=== PATIENT | female | born 1935 | race Caucasian/White ===

== ENCOUNTER 2017-08-25 19:18 | Inpatient (IN) | payer BC, MEDICARE ==
[2017-08-25] MEDS ORDERED: NORMAL SALINE 1000 ML 1,000 ML IV ONE (20:36)
--- NOTE | 2017-08-25 20:40 | ER Document Report ---
ED Medical Screen (RME) - General Chief Complaint: Flu Symptoms Stated Complaint: FLU LIKE SYMPTOMS Time Seen by Provider: 08/25/17 20:27 Notes: 81-year-old female here with multiple complaints ongoing for the past 5-7 days: Body aches, nausea, vomiting, diarrhea, minimal cough, dysuria, fevers/chills. She has tried taking Motrin and Tylenol for the symptoms with minimal to mild relief. She does not know of any sick contacts recently however several weeks ago she was sitting in a room at another hospital filled with "sick people with masks on". She received her influenza vaccine June 2017, she reports. EXAM Mildly tachycardic 110s Clear to auscultation bilaterally Dry mucous membranes with poor skin turgor No abdominal tenderness to palpation TRAVEL OUTSIDE OF THE [place] IN LAST 30 DAYS: No - Related Data Allergies/Adverse Reactions: Penicillins Allergy (Verified 08/25/17 19:20) Past Medical History - Social History Chew tobacco use (# tins/day): No Frequency of alcohol use: None Drug Abuse: None - Past Medical History Cardiac Medical History: Reports: Hx Hypertension Renal/ Medical History: Denies: Hx Peritoneal Dialysis Psychiatric Medical History: Reports: Hx Depression Physical Exam - Vital signs Vitals: Temp Pulse BP Pulse Ox 98.0 F 106 H 111/49 L 94 08/25/17 19:29 08/25/17 19:29 08/25/17 19:29 08/25/17 19:29 Course - Vital Signs Vital signs: Temp Pulse Resp BP Pulse Ox 98.0 F 106 H 111/49 L 94 08/25/17 19:29 08/25/17 19:29 08/25/17 19:29 08/25/17 19:29
[2017-08-25 21:28] LABS: HEMATOCRIT 30.4 % (36.0-47.0); MEAN CORPUSCULAR HEMOGLOBIN 30.2 pg (27.0-33.4); MEAN CORPUSCULAR HGB CONC 33.1 g/dL (32.0-36.0); MEAN CORPUSCULAR VOLUME 91 fl (80-97); PLATELET COUNT 215 10^3/uL (150-450); RED BLOOD COUNT 3.33 10^6/uL (3.72-5.28); RED CELL DISTRIBUTION WIDTH 13.3 % (11.5-14.0); WHITE BLOOD COUNT 14.9 10^3/uL (4.0-10.5)
--- NOTE | 2017-08-25 21:36 | RADIOLOGY REPORT (SQ) ---
EXAM DESCRIPTION: CHEST PA/LAT COMPLETED DATE/TIME: 08/25/2017 9:24 pm REASON FOR STUDY: eval pneumonia COMPARISON: None. EXAM PARAMETERS: NUMBER OF VIEWS: two views TECHNIQUE: Digital Frontal and Lateral radiographic views of the chest acquired. RADIATION DOSE: NA LIMITATIONS: none FINDINGS: LUNGS AND PLEURA: No opacities, masses or pneumothorax. No pleural effusion. MEDIASTINUM AND HILAR STRUCTURES: No masses or contour abnormalities. HEART AND VASCULAR STRUCTURES: Heart normal size. No evidence for failure. BONES: No acute findings. HARDWARE: None in the chest. OTHER: No other significant finding. IMPRESSION: NO SIGNIFICANT RADIOGRAPHIC FINDING IN THE CHEST. TECHNICAL DOCUMENTATION: JOB ID: [id number] [employer]- All Rights Reserved
[2017-08-25 21:41] LABS: AMORPHOUS SEDIMENT,URINE TRACE /HPF; APPEARANCE,URINE CLOUDY; BILIRUBIN,URINE NEGATIVE (NEGATIVE); COLOR,URINE AMBER; GLUCOSE, URINE NEGATIVE (NEGATIVE); KETONES,URINE NEGATIVE (NEGATIVE); LEUKOCYTE ESTERASE,URINE MODERATE (NEGATIVE); NITRITE,URINE POSITIVE (NEGATIVE); PROTEIN,URINE 100 mg/dL (NEGATIVE)
[2017-08-25 21:42] LABS: A TYPE INFLUENZA AG NEGATIVE (NEGATIVE); B INFLUENZA AG NEGATIVE (NEGATIVE)
[2017-08-25 21:44] LABS: ABSOLUTE LYMPHOCYTES# (MANUAL) 0.9 10^3/uL (0.5-4.7); ABSOLUTE MONOCYTES # (MANUAL) 1.2 10^3/uL (0.1-1.4); ABSOLUTE NEUTROPHILS# (MANUAL) 12.8 10^3/uL (1.7-8.2); BAND NEUTROPHILS % (MANUAL) 4 % (3-5); BASOPHILS % (MANUAL) 0 % (0-2); EOSINOPHILS % (MANUAL) 0 % (0-6); LYMPHOCYTES % (MANUAL) 6 % (13-45); MONOCYTES % (MANUAL) 8 % (3-13); SEGMENTED NEUTROPHILS % (MAN) 82 % (42-78); TOTAL CELLS COUNTED 100
[2017-08-25 21:45] LABS: PLATELET COMMENT ADEQUATE; TOXIC GRANULATION SLIGHT
[2017-08-25 22:11] LABS: CALCIUM 9.2 mg/dL (8.4-10.2)
[2017-08-25 22:12] LABS: ALBUMIN 3.4 g/dL (3.5-5.0); ANION GAP 14 (5-19); BLOOD UREA NITROGEN 85 mg/dL (7-20); CARBON DIOXIDE 27 mmol/L (22-30); CHLORIDE 92 mmol/L (98-107); GLUCOSE 108 mg/dL (75-110); SODIUM 133.4 mmol/L (137-145)
[2017-08-25 22:13] LABS: ALANINE AMINOTRANSFERASE 53 U/L (9-52); ALKALINE PHOSPHATASE 203 U/L (38-126); ASPARTATE AMINO TRANSFERASE 116 U/L (14-36); BILIRUBIN,DIRECT 0.5 mg/dL (0.0-0.4); BILIRUBIN,TOTAL 0.7 mg/dL (0.2-1.3); TOTAL PROTEIN 6.5 g/dL (6.3-8.2)
[2017-08-25 22:14] LABS: LIPASE 23.9 U/L (23-300)
[2017-08-25 22:17] LABS: POTASSIUM 2.8 mmol/L (3.6-5.0)
[2017-08-25] MEDS ORDERED: CEFTRIAXONE INJ 1000 MG VIAL IV ONE (23:26)
[2017-08-25] MEDS ORDERED: POTASSIUM CHLORIDE 10 MEQ TABLET.SA PO ONE (23:27)
[2017-08-26] MEDS ORDERED: PANTOPRAZOLE SODIUM 40 MG VIAL IV ONE (02:13)
[2017-08-26] MEDS ORDERED: NORMAL SALINE 500 ML IV ONE (02:13)
[2017-08-26] MEDS ORDERED: MORPHINE SULFATE 10 MG/ML INJ IV ONE (03:21)
[2017-08-26] MEDS ORDERED: ONDANSETRON HCL INJ/PF 4 MG/2 ML SDV IV ONE (03:49)
--- NOTE | 2017-08-26 03:58 | RADIOLOGY REPORT (SQ) ---
EXAM DESCRIPTION: CT ABDOMEN AND PELVIS WITHOUT CONTRAST CLINICAL HISTORY: abdominal pain, pyelonephritis COMPARISON: None Available. TECHNIQUE: CT of the abdomen and pelvis without IV contrast. FINDINGS: Abdomen: The liver has normal size and decreased density. No calcified gallstones. The spleen, pancreas, and adrenal glands are unremarkable. There is a 0.6 cm nonobstructing right renal calculus. There are 2 nonobstructing left renal calculi, the largest measuring 0.5 cm. Hypodense structure in the inferior pole of the right kidney measuring 4.6 cm likely represents a cyst however definitive characterization is not possible without IV contrast. Aortoiliac atherosclerosis. IVC is unremarkable. No free intraperitoneal air. The stomach and duodenum have normal course. Pelvis: Prior hysterectomy. Urinary bladder is unremarkable. No free pelvic fluid or lymphadenopathy. Scattered diverticula of the colon without pericolic fat stranding. No dilated loops of large or small bowel. The appendix is not definitely identified however no right lower quadrant inflammatory change. The visualized lung bases imaging minimal scarring or discoid atelectasis. No destructive bone lesions identified. Degenerative spondylosis of the visualized thoracic and lumbar spine. Blastic changes of the hips bilaterally. DLP: 415.90 mGy-cm IMPRESSION: 1. No acute inflammatory or obstructive abnormality identified. 2. Bilateral nonobstructing renal calculi. 3. Diverticulosis without evidence of acute diverticulitis. 4. Hepatic steatosis. This exam was performed according to our departmental dose-optimization program, which includes automated exposure control, adjustment of the mA and/or kV according to patient size and/or use of iterative reconstruction technique.
[2017-08-26] MEDS ORDERED: NORMAL SALINE 1000 ML 1,000 ML IV PRN (04:43)
[2017-08-26] MEDS ORDERED: ONDANSETRON HCL INJ/PF 4 MG/2 ML SDV IV PRN (04:43)
--- NOTE | 2017-08-26 04:44 | ER Document Report ---
ED General - General Chief Complaint: Flu Symptoms Stated Complaint: FLU LIKE SYMPTOMS Time Seen by Provider: 08/25/17 20:27 Notes: Patient is an 81-year-old female presents with complaint of feeling unwell. She says over the weekend she did not feel very well and then on Monday she started to feel really sick. She says she has had body aches and subjective fevers at home. She has felt very nauseous and has not eaten much. She has also had dysuria and urinary frequency. She also mentioned she has had some dark colored stools over last 24 hours. She has had some central abdominal pain. She says this is been mild and feels more like body aches to her. No other complaints at this time. No cough or congestion. TRAVEL OUTSIDE OF THE [place] IN LAST 30 DAYS: No - Related Data Allergies/Adverse Reactions: Penicillins Allergy (Verified 08/25/17 19:20) Past Medical History - Social History Smoking Status: Never Smoker Chew tobacco use (# tins/day): No Frequency of alcohol use: None Drug Abuse: None Family History: Reviewed & Not Pertinent Patient has suicidal ideation: No Patient has homicidal ideation: No - Past Medical History Cardiac Medical History: Reports: Hx Hypertension Renal/ Medical History: Denies: Hx Peritoneal Dialysis Psychiatric Medical History: Reports: Hx Depression Review of Systems - Review of Systems Notes: My Normal Review Basic REVIEW OF SYSTEMS: CONSTITUTIONAL : Chills. Feeling unwell. Feeling weak. EENT: Denies eye, ear, throat, or mouth pain or symptoms. Denies nasal or sinus congestion. CARDIOVASCULAR: Denies chest pain. RESPIRATORY: Denies cough, cold, or chest congestion. Denies shortness of breath, difficulty breathing, or wheezing. GASTROINTESTINAL: Some abdominal pain. Denies nausea, vomiting, or diarrhea. Dark stools. Urinary: Dysuria and urinary frequency. MUSCULOSKELETAL: Denies neck or back pain or joint pain or swelling. SKIN: Denies rash or skin lesions. NEUROLOGICAL: Denies altered mental status or loss of consciousness. Denies headache. Denies weakness or paralysis or loss of use of either side. Denies problems with gait or speech. Denies sensory or motor loss. ALL OTHER SYSTEMS REVIEWED AND NEGATIVE. Physical Exam - Vital signs Vitals: Temp Pulse BP Pulse Ox 98.0 F 106 H 111/49 L 94 08/25/17 19:29 08/25/17 19:29 08/25/17 19:29 08/25/17 19:29 - Notes Notes: General Appearance: Well nourished, alert, cooperative, no acute distress, no obvious discomfort. Weak appearing. Vitals: reviewed, See vital signs table. Head: no swelling or tenderness to the head Eyes: PERRL, EOMI, Conjuctiva clear Mouth: No decreasd moisture Neck: Supple, no neck tenderness Lungs: No wheezing, No rales, No rhonci, No accessory muscle use, good air exchange bilaterally. Heart: Normal rate, Regular rythm, No murmur, no rub Abdomen: Normal BS, soft, No rigidity, mild diffuse abdominal tenderness to palpation, No guarding, no rebound, no abdominal masses, no organomegaly Rectal: Brown stool on rectal exam. No gross blood. Extremities: strength 5/5 in all extremities, good pulses in all extremities, no swelling or tenderness in the extremities, no edema. Skin: warm, dry, appropriate color, no rash Neuro: speech clear, oriented x 3, normal affect, responds appropriately to questions. Course - Re-evaluation Re-evalutation: 08/26/17 06:26 Patient's potassium is low and therefore I did give her some supplemental potassium. As patient stay in the ER she continued to be more more weak appearing and her heart rate continued to increase making concerned that the patient is possibly becoming septic from a kidney infection. Patient is also started having some epigastric pain. She is to take Zantac for indigestion. She says she has had some indigestion and acid reflux type symptoms recently but had not restarted her medication. Now she started have some dark stools. Rectal exam she had brown stools but they did end up being guaiac positive. I did give her a dose of Protonix IV. I did call and speak with the hospitalist, Dr. Tejeda. I discussed case with her. She agreed to come evaluate the patient for admission. I did give the patient dose of Rocephin did send her urine for culture. Blood cultures have also been obtained. Dictation of this chart was performed using voice recognition software; therefore, there may be some unintended grammatical errors. - Vital Signs Vital signs: Temp Pulse Resp BP Pulse Ox 98.2 F 106 H 22 H 129/54 H 93 08/26/17 05:00 08/25/17 19:29 08/26/17 05:01 08/26/17 05:01 08/26/17 05:01 - Laboratory Result Diagrams: 08/25/17 21:05 08/25/17 21:05 Laboratory results interpreted by me: 08/25/17 08/25/17 08/25/17 21:05 21:05 21:05 WBC 14.9 H RBC 3.33 L Hgb 10.0 L Hct 30.4 L Seg Neuts % (Manual) 82 H Lymphocytes % (Manual) 6 L Abs Neuts (Manual) 12.8 H Sodium 133.4 L Potassium 2.8 L* Chloride 92 L BUN 85 H Creatinine 2.89 H Est GFR ( Amer) 19 L Est GFR (Non-Af Amer) 16 L Magnesium Direct Bilirubin 0.5 H AST 116 H ALT 53 H Alkaline Phosphatase 203 H Albumin 3.4 L Urine Protein 100 H Urine Nitrite POSITIVE H Urine Urobilinogen 2.0 H Ur Leukocyte Esterase MODERATE H 08/25/17 21:05 WBC RBC Hgb Hct Seg Neuts % (Manual) Lymphocytes % (Manual) Abs Neuts (Manual) Sodium Potassium Chloride BUN Creatinine Est GFR ( Amer) Est GFR (Non-Af Amer) Magnesium 2.5 H Direct Bilirubin AST ALT Alkaline Phosphatase Albumin Urine Protein Urine Nitrite Urine Urobilinogen Ur Leukocyte Esterase Discharge - Discharge Clinical Impression: Pyelonephritis, Hypokalemia, Guaiac positive stools Condition: Stable Disposition: ADMITTED INPATIENT Admitting Provider: Hospitalist Unit Admitted: [facility]
[2017-08-26] MEDS: SUCRALFATE SUSP 1 GM/10 ML UDCUP PO SCH ×3 (05:20→18:43)
[2017-08-26] MEDS: POTASSI CL 20 MEQ/50 ML RIDER 20 MEQ/50 ML RTUPB IV SCH ×2 (05:22→07:46)
[2017-08-26] MEDS ORDERED: POTASSIUM CHLORIDE 10 MEQ TABLET.SA PO ONE (05:30)
--- NOTE | 2017-08-26 07:32 | PDOC H&P ---
History of Present Illness History of Present Illness: LOUISA GUERRA is a 81 year old female with past medical history of hypertension, depression, anxiety resents to the emergency department with complaints of chills and generalized malaise. Patient reports that starting on Monday she began having chills subsequently developed into body aches. She reports she began having abdomen chest head and leg pain. She took some Tylenol and Midol. She states she has been eating and drinking very little over the past week and noted that her urine was dark however noted urgency frequency and dysuria. Patient reports she took Azo. She reports that she does have a slight cough but it is dry. She reports nausea but dry heaves no actual vomiting. And has a couple of days ago she had some dark stool. Patient is found to have UTI likely acute renal failure and sepsis and is referred to the hospital service for admission. Patient's medications are currently undergoing reconciliation. Current list is automatically generated by [employer] and does not reflect an accurate description of her medications. Due to the urgent/emergent nature of her condition, she is admitted without a full list. Past Medical History Cardiac Medical History: Reports: Hypertension Psychiatric Medical History: Reports: Depression Past Surgical History Past Surgical History: Reports: Hysterectomy Social History Smoking Status: Never Smoker - Advance Directive Resuscitation Status: Full Code Surrogate healthcare decision maker:: Mohinder Sanford, brother Family History Family History: CAD Parental Family History Reviewed: Yes Children Family History Reviewed: NA Sibling(s) Family History Reviewed.: Yes Medication/Allergy Allergies/Adverse Reactions: Penicillins Allergy (Verified 08/25/17 19:20) Review of Systems Constitutional: PRESENT: as per HPI, anorexia, chills, fatigue, fever(s), weakness. ABSENT: headache(s), weight gain, weight loss Eyes: ABSENT: visual disturbances Ears: ABSENT: hearing changes Cardiovascular: ABSENT: chest pain, dyspnea on exertion, edema, orthropnea, palpitations Respiratory: ABSENT: cough, hemoptysis Gastrointestinal: PRESENT: as per HPI, melena, nausea, vomiting. ABSENT: abdominal pain, constipation, diarrhea, hematemesis, hematochezia Genitourinary: PRESENT: dysuria. ABSENT: hematuria Musculoskeletal: ABSENT: joint swelling Integumentary: ABSENT: rash, wounds Neurological: ABSENT: abnormal gait, abnormal speech, confusion, dizziness, focal weakness, syncope Psychiatric: ABSENT: anxiety, depression, homidical ideation, suicidal ideation Endocrine: ABSENT: cold intolerance, heat intolerance, polydipsia, polyuria Hematologic/Lymphatic: ABSENT: easy bleeding, easy bruising Physical Exam Vital Signs: Temp Pulse Resp BP Pulse Ox 98.0 F 106 H 18 118/82 93 08/26/17 01:33 08/25/17 19:29 08/26/17 04:07 08/26/17 04:07 08/26/17 04:07 Intake & Output 08/24/17 08/25/17 08/26/17 06:59 06:59 06:59 Weight 53.1 kg General appearance: PRESENT: mild distress, obese, well-developed, well- nourished Head exam: PRESENT: atraumatic, normocephalic Eye exam: PRESENT: conjunctiva pink, EOMI, PERRLA. ABSENT: scleral icterus Ear exam: PRESENT: normal external ear exam Mouth exam: PRESENT: dry mucosa, tongue midline Neck exam: ABSENT: JVD, lymphadenopathy, thyromegaly, tracheal deviation Respiratory exam: PRESENT: clear to auscultation shaunna. ABSENT: rales, rhonchi, wheezes Cardiovascular exam: PRESENT: RRR, +S1, +S2, systolic murmur. ABSENT: diastolic murmur, rubs Pulses: PRESENT: normal dorsalis pedis pul Vascular exam: PRESENT: normal capillary refill GI/Abdominal exam: PRESENT: normal bowel sounds, soft, tenderness - Midepigastric. ABSENT: distended, firm, guarding, mass, Pate's sign, organolmegaly, rebound Rectal exam: PRESENT: deferred Extremities exam: PRESENT: full ROM. ABSENT: calf tenderness, clubbing, pedal edema Neurological exam: PRESENT: alert, awake, oriented to person, oriented to place , oriented to time, oriented to situation, CN II-XII grossly intact. ABSENT: motor sensory deficit Psychiatric exam: PRESENT: appropriate affect, normal mood. ABSENT: homicidal ideation, suicidal ideation Skin exam: PRESENT: dry, intact, warm. ABSENT: cyanosis, rash Results Laboratory Results: 08/25/17 21:05 08/25/17 21:05 08/25/17 08/25/17 08/25/17 21:05 21:05 21:05 WBC 14.9 H RBC 3.33 L Hgb 10.0 L Hct 30.4 L MCV 91 MCH 30.2 MCHC 33.1 RDW 13.3 Plt Count 215 Seg Neutrophils % Not Reportable Lymphocytes % Not Reportable Monocytes % Not Reportable Eosinophils % Not Reportable Basophils % Not Reportable Absolute Neutrophils Not Reportable Absolute Lymphocytes Not Reportable Absolute Monocytes Not Reportable Absolute Eosinophils Not Reportable Absolute Basophils Not Reportable Sodium 133.4 L Potassium 2.8 L* Chloride 92 L Carbon Dioxide 27 Anion Gap 14 BUN 85 H Creatinine 2.89 H Est GFR ( Amer) 19 L Est GFR (Non-Af Amer) 16 L Glucose 108 Calcium 9.2 Magnesium Total Bilirubin 0.7 AST 116 H ALT 53 H Alkaline Phosphatase 203 H Total Protein 6.5 Albumin 3.4 L Lipase 23.9 Urine Color VIJAY Urine Appearance CLOUDY Urine pH 5.0 Ur Specific [place] 1.020 Urine Protein 100 H Urine Glucose (UA) NEGATIVE Urine Ketones NEGATIVE Urine Blood NEGATIVE Urine Nitrite POSITIVE H Ur Leukocyte Esterase MODERATE H Urine WBC (Auto) 94 Urine RBC (Auto) 6 Stool Occult Blood 08/25/17 08/25/17 21:05 23:20 WBC RBC Hgb Hct MCV MCH MCHC RDW Plt Count Seg Neutrophils % Lymphocytes % Monocytes % Eosinophils % Basophils % Absolute Neutrophils Absolute Lymphocytes Absolute Monocytes Absolute Eosinophils Absolute Basophils Sodium Potassium Chloride Carbon Dioxide Anion Gap BUN Creatinine Est GFR ( Amer) Est GFR (Non-Af Amer) Glucose Calcium Magnesium 2.5 H Total Bilirubin AST ALT Alkaline Phosphatase Total Protein Albumin Lipase Urine Color Urine Appearance Urine pH Ur Specific [place] Urine Protein Urine Glucose (UA) Urine Ketones Urine Blood Urine Nitrite Ur Leukocyte Esterase Urine WBC (Auto) Urine RBC (Auto) Stool Occult Blood POSITIVE Impressions: Chest X-Ray 08/25/17 20:36 IMPRESSION: NO SIGNIFICANT RADIOGRAPHIC FINDING IN THE CHEST. Abdomen/Pelvis CT 08/26/17 03:16 IMPRESSION: 1. No acute inflammatory or obstructive abnormality identified. 2. Bilateral nonobstructing renal calculi. 3. Diverticulosis without evidence of acute diverticulitis. 4. Hepatic steatosis. This exam was performed according to our departmental dose-optimization program, which includes automated exposure control, adjustment of the mA and/or kV according to patient size and/or use of iterative reconstruction technique. Assessment & Plan - Diagnosis (1) Sepsis Qualifiers: Sepsis type: sepsis due to unspecified organism Qualified Code(s): A41.9 - Sepsis, unspecified organism Is this a current diagnosis for this admission?: Yes Plan: Have sent blood and urine cultures secondary to pyelonephritis (2) Pyelonephritis Is this a current diagnosis for this admission?: Yes Plan: Place patient empirically on Rocephin. Blood and urine culture sent (3) Anemia Qualifiers: Anemia type: unspecified type Qualified Code(s): D64.9 - Anemia, unspecified Is this a current diagnosis for this admission?: Yes (4) Acute renal failure Qualifiers: Acute renal failure type: unspecified Qualified Code(s): N17.9 - Acute kidney failure, unspecified Is this a current diagnosis for this admission?: Yes Plan: Likely acute and possibly some chronic renal failure. We have no old creatinine to go by. Will hydrate patient gently (5) Anxiety with depression Is this a current diagnosis for this admission?: Yes Plan: Continue Xanax she is unsure of her antidepressant (6) Guaiac positive stools Is this a current diagnosis for this admission?: Yes Plan: Protonix IV twice daily and Carafate (7) Hypokalemia Is this a current diagnosis for this admission?: Yes Plan: Monitor on telemetry with concern for arrhythmia. Replete and recheck
[2017-08-26] MEDS: PANTOPRAZOLE SODIUM 40 MG VIAL IV SCH ×2 (09:37→21:25)
--- NOTE | 2017-08-26 09:54 | PROGRESS NOTE E ---
Progress Note NAME: LOUISA GUERRA : 1935 AGE: 81Y DATE: 08/26/2017 ROOM: ED12 SUBJECTIVE: The patient is currently lying on a stretcher. She states that she feels better than when she came in; however, she is hungry as she did not appreciate her breakfast. The patient has been afebrile. Remains tachycardiac but overall feels much improved. The patient denies any shortness of breath, dizziness, or chest pain. She still has some lateral abdominal wall pain. The patient denies any hematemesis, melena, or hematochezia. The patient does not voice any other concerns at this time. REVIEW OF SYSTEMS: Rest of the review of systems negative. MEDICATIONS: Have been reviewed. OBJECTIVE: GENERAL: The patient is an 81-year-old female who is awake, alert. She is oriented to person, place, time, and situation. She is verbal, conversational, and does not appear to be in any acute distress. VITAL SIGNS: Temperature 98.2, pulse 108, respirations 19, blood pressure 134/65, oxygen saturation is 100% on room air. SKIN: Warm and dry. No rash. She is not diaphoretic. HEENT: Pupils equal, round, reactive to light and accommodation. Conjunctivae are pink. There is no evidence of JVP. CARDIOVASCULAR: Heart is regular. There is no murmur or rub. CHEST: Clear, symmetrical, unlabored. ABDOMEN: Soft, nontender, nondistended. BACK: No CVA tenderness or sacral edema. EXTREMITIES: No clubbing, cyanosis, or edema. PSYCHIATRIC: Appropriate affect. Pleasant mood. DIAGNOSTICS: Lab values are as follow: Hematology obtained on 08/25/2017: WBCs are 14.9, hemoglobin is 10.0, hematocrit is 30.4, platelet count is 215,000. Chemistry obtained on 08/25/2017: Sodium is 133, potassium 2.8, chloride is 92, carbon dioxide 27, BUN 85, creatinine is 2.89, glucose 108, calcium is 9.2. IMPRESSION AND PLAN: 1. ACUTE PYELONEPHRITIS. Will await culture and sensitivity. Continue Rocephin and follow. 2. SEPSIS SECONDARY TO #1. Currently awaiting cultures. Will continue to also hydrate. 3. ACUTE RENAL FAILURE. Feel the patient most likely has an underlying chronic failure as well. Have no old creatinine as a point of reference. Will hydrate the patient gently and follow. 4. ANXIETY WITH DEPRESSION. Will continue the patient's home medication. 5. POSITIVE GUAIAC. Continue PPI. The patient denies any evidence of overt bleed. 6. HYPOKALEMIA. Will add on a magnesium, continue repletion, and repeat chemistries to follow. DISPOSITION: The patient is a FULL CODE. Pending patient's symptomatology and diagnostic findings, will reevaluate as needed. Time spent on this followup including assessment, plan, physical examination, patient education, and review of records is 60 minutes. DICTATING PHYSICIAN: CRISELDA WHITFIELD NP [id number] PHY#: [id number] ID: [id number] JOB#: [id number] ACCT: [id number] cc: >
[2017-08-26 10:55] LABS: HEMATOCRIT 23.3 % (36.0-47.0); MEAN CORPUSCULAR HEMOGLOBIN 31.3 pg (27.0-33.4); MEAN CORPUSCULAR HGB CONC 33.7 g/dL (32.0-36.0); MEAN CORPUSCULAR VOLUME 93 fl (80-97); PLATELET COUNT 173 10^3/uL (150-450); RED BLOOD COUNT 2.51 10^6/uL (3.72-5.28); RED CELL DISTRIBUTION WIDTH 13.6 % (11.5-14.0); WHITE BLOOD COUNT 14.2 10^3/uL (4.0-10.5)
[2017-08-26 11:13] LABS: ABSOLUTE LYMPHOCYTES# (MANUAL) 0.9 10^3/uL (0.5-4.7); ABSOLUTE MONOCYTES # (MANUAL) 0.3 10^3/uL (0.1-1.4); ABSOLUTE NEUTROPHILS# (MANUAL) 12.9 10^3/uL (1.7-8.2); ANION GAP 12 (5-19); BAND NEUTROPHILS % (MANUAL) 8 % (3-5); BASOPHILS % (MANUAL) 1 % (0-2); BLOOD UREA NITROGEN 88 mg/dL (7-20); CHLORIDE 108 mmol/L (98-107); EOSINOPHILS % (MANUAL) 0 % (0-6); GLUCOSE 126 mg/dL (75-110); LYMPHOCYTES % (MANUAL) 6 % (13-45); MAGNESIUM 2.3 mg/dL (1.6-2.3); MONOCYTES % (MANUAL) 2 % (3-13); SEGMENTED NEUTROPHILS % (MAN) 83 % (42-78); SODIUM 136.5 mmol/L (137-145); TOTAL CELLS COUNTED 100
[2017-08-26 11:17] LABS: HYPOCHROMASIA SLIGHT; PLATELET COMMENT ADEQUATE
[2017-08-26 11:21] LABS: HEMOGLOBIN 7.8 g/dL (12.0-15.5)
[2017-08-26 11:32] LABS: CARBON DIOXIDE 17 mmol/L (22-30); POTASSIUM 4.3 mmol/L (3.6-5.0)
[2017-08-26 15:24] LABS: HEMATOCRIT 22.4 % (36.0-47.0); MEAN CORPUSCULAR HEMOGLOBIN 31.3 pg (27.0-33.4); MEAN CORPUSCULAR VOLUME 92 fl (80-97); PLATELET COUNT 188 10^3/uL (150-450); RED BLOOD COUNT 2.43 10^6/uL (3.72-5.28); RED CELL DISTRIBUTION WIDTH 13.4 % (11.5-14.0); WHITE BLOOD COUNT 15.1 10^3/uL (4.0-10.5)
[2017-08-26 15:44] LABS: ABSOLUTE LYMPHOCYTES# (MANUAL) 0.6 10^3/uL (0.5-4.7); ABSOLUTE MONOCYTES # (MANUAL) 0.6 10^3/uL (0.1-1.4); ABSOLUTE NEUTROPHILS# (MANUAL) 13.7 10^3/uL (1.7-8.2); BAND NEUTROPHILS % (MANUAL) 6 % (3-5); BASOPHILS % (MANUAL) 0 % (0-2); EOSINOPHILS % (MANUAL) 1 % (0-6); LYMPHOCYTES % (MANUAL) 4 % (13-45); METAMYELOCYTES % (MANUAL) 1 % (0); MONOCYTES % (MANUAL) 4 % (3-13); SEGMENTED NEUTROPHILS % (MAN) 84 % (42-78); TOTAL CELLS COUNTED 100
[2017-08-26 15:46] LABS: HYPOCHROMASIA SLIGHT; PLATELET COMMENT ADEQUATE
[2017-08-26 16:07] LABS: HEMOGLOBIN 7.6 g/dL (12.0-15.5)
[2017-08-26] MEDS ORDERED: NORMAL SALINE 250 ML IV PRN ×2 (16:48)
[2017-08-26] MEDS ORDERED: ACETAMINOPHEN 325 MG TABLET PO PRN (16:48)
[2017-08-26] MEDS ORDERED: DIPHENHYDRAMINE HCL 25 MG CAPSULE PO PRN (16:48)
[2017-08-26] MEDS: CEFTRIAXONE SODIUM 1,000 MG in DEXTROSE 5%-WATER 50 ML IV SCH (21:31)
[2017-08-26] MEDS ORDERED: CEFTRIAXONE 1 GM/D5W RTU 1 GM/50 ML RTUPB IV SCH (22:00)
[2017-08-27] MEDS: SUCRALFATE SUSP 1 GM/10 ML UDCUP PO SCH ×3 (00:36→12:47)
[2017-08-27] MEDS: PANTOPRAZOLE SODIUM 40 MG VIAL IV SCH ×2 (09:41→21:56)
[2017-08-27] MEDS: PAROXETINE HCL 20 MG TABLET PO SCH (09:42)
[2017-08-27] MEDS: ALPRAZOLAM 0.25 MG TABLET PO PRN ×2 (10:10→21:57)
[2017-08-27 10:22] LABS: HEMATOCRIT 28.7 % (36.0-47.0); HEMOGLOBIN 9.6 g/dL (12.0-15.5); MEAN CORPUSCULAR HEMOGLOBIN 30.7 pg (27.0-33.4); MEAN CORPUSCULAR HGB CONC 33.5 g/dL (32.0-36.0); MEAN CORPUSCULAR VOLUME 92 fl (80-97); PLATELET COUNT 159 10^3/uL (150-450); RED BLOOD COUNT 3.14 10^6/uL (3.72-5.28); RED CELL DISTRIBUTION WIDTH 13.7 % (11.5-14.0); WHITE BLOOD COUNT 16.7 10^3/uL (4.0-10.5)
[2017-08-27 10:37] LABS: ANION GAP 11 (5-19); CALCIUM 8.2 mg/dL (8.4-10.2); CARBON DIOXIDE 16 mmol/L (22-30); CHLORIDE 111 mmol/L (98-107); GLUCOSE 116 mg/dL (75-110); MAGNESIUM 2.2 mg/dL (1.6-2.3); POTASSIUM 4.3 mmol/L (3.6-5.0); SODIUM 138.3 mmol/L (137-145)
[2017-08-27 10:43] LABS: ABSOLUTE LYMPHOCYTES# (MANUAL) 1.2 10^3/uL (0.5-4.7); ABSOLUTE MONOCYTES # (MANUAL) 1.2 10^3/uL (0.1-1.4); ABSOLUTE NEUTROPHILS# (MANUAL) 14.4 10^3/uL (1.7-8.2); BAND NEUTROPHILS % (MANUAL) 2 % (3-5); BASOPHILS % (MANUAL) 0 % (0-2); EOSINOPHILS % (MANUAL) 0 % (0-6); LYMPHOCYTES % (MANUAL) 3 % (13-45); METAMYELOCYTES % (MANUAL) 1 % (0); MONOCYTES % (MANUAL) 7 % (3-13); SEGMENTED NEUTROPHILS % (MAN) 83 % (42-78); TOTAL CELLS COUNTED 100
[2017-08-27 10:44] LABS: HYPOCHROMASIA SLIGHT; PLATELET COMMENT ADEQUATE
[2017-08-27 10:55] LABS: BLOOD UREA NITROGEN 69 mg/dL (7-20)
[2017-08-27] MEDS ORDERED: PHENAZOPYRIDINE HCL 100 MG TABLET ONE (18:49)
--- NOTE | 2017-08-27 18:54 | PROGRESS NOTE E ---
Progress Note NAME: LOUISA GUERRA : 1935 AGE: 81Y DATE: 08/27/2017 ROOM: 306 SUBJECTIVE: The patient is currently lying in bed. She is a little sleepy today. The patient states that she is "hung over from the Benadryl." The patient denies any nausea, vomiting, diarrhea. No shortness of breath, dizziness or chest pain. The family is present at bedside, active in the patient's care, and the patient has not voiced any other concerns at this time. BRIEF HISTORY: The patient is an 81-year-old female with a past medical history of hypertension that presented to the emergency department on 08/26/2017. The patient was found to be septic with pyelonephritis and subsequent gram-negative kaylynn bacteremia. The patient has been covered with Rocephin since admission, with overall improvement in her symptoms. The patient was also noted to have what was felt to be acute renal failure. The patient's presenting creatinine was 2.89, and after hydration, it was 1.9. No other labs were available for comparison, and these are pending from Dr. Albright's office on Monday. The patient's potassium has been repleted. Additionally, it appears that the patient came in with a hemoglobin of 10, which again the patient was quite dehydrated, and this did drift down to 7.6. The patient was typed and crossed and transfused 2 units of packed red blood cells. I have a suspicion that the patient most likely has underlying chronic disease, given her normocytic, normochromic anemia; however, the patient did have a positive guaiac, and a repeat guaiac is pending. The patient has been on PPI therapy and has had no evidence of bright red bleeding, melena or hematochezia. REVIEW OF SYSTEMS: The rest of the review of systems is negative. MEDICATIONS: Reviewed. OBJECTIVE: GENERAL: The patient is an 81-year-old female who is awake, alert and oriented to person, place, time and situation. She is verbal and conversational. Does not appear to be in any acute distress. VITAL SIGNS: Temperature is 98.7, pulse 93, respirations 20, blood pressure 150/64, oxygen saturation 100% on 2 liters nasal cannula. SKIN: Warm and dry. No rashes. Not diaphoretic. HEENT: Pupils equal, round and reactive to light and accommodation. Conjunctivae are pink. NECK: There is no evidence of JVP. CVS: Heart is regular rate and rhythm. No murmur or rub. CHEST: Clear, symmetrical, unlabored. ABDOMEN: Soft, nontender, nondistended. BACK: No CVA tenderness or sacral edema. EXTREMITIES: No clubbing, cyanosis or edema. 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 DIAGNOSTICS: Lab values are as follows: Hematology obtained on 08/27/2017: WBC 16.7, hemoglobin 9.6, hematocrit is 28.7, platelet count is 159,000. Chemistry obtained on 08/27/2017: Sodium is 138, potassium 4.3, chloride is 111, carbon dioxide 16. BUN 69, creatinine 1.93, glucose 116, calcium is 8.2, magnesium is 2.2. Blood culture sent on 08/25/2017 had gram-negative rods. IMPRESSION AND PLAN: 1. ACUTE PYELONEPHRITIS. Will continue with Rocephin, given that the patient's clinical condition has improved, and await urine culture and sensitivity, which is still interestingly pending. 2. GRAM-NEGATIVE KAYLYNN BACTEREMIA. This in both sets, most likely secondary to #1. Once again, will continue with Rocephin. We will repeat blood cultures today and follow. 3. SEPSIS, SECONDARY TO #1 AND #2. Currently awaiting repeat cultures. 4. ACUTE RENAL FAILURE. I do have a suspicion of underlying chronic kidney disease, as well. There is no old creatinine for comparison; however, this should be obtained from Dr. Albright's office in the a.m. At this time, will continue to hold Voltaren, Mobic, Diovan and hydrochlorothiazide, and gently hydrate. 5. ANXIETY WITH DEPRESSION. Will continue the patient's Paxil and Xanax. 6. HYPOKALEMIA. The patient's magnesium is normal. The patient's potassium has been repleted. 7. ANEMIA, STATUS POST TRANSFUSION. The patient was transfused 2 units of packed red blood cells on 08/26/2017. The patient did have a positive guaiac, but has denied any melena or hematochezia. The patient did have a small black stool, but this has been after Pepto-Bismol. Patient did have a positive guaiac. Will continue PPI, but there is no evidence of overt bleed at this time. DISPOSITION: The patient is a FULL CODE. Pending patient's symptomatology and diagnostic findings, will reevaluate in the a.m. Time spent on this followup, including assessment, plan, physical examination, patient education and family meeting and review of records is 35 minutes. DICTATING PHYSICIAN: CRISELDA WHITFIELD NP [id number] PHY#: [id number] ID: [id number] JOB#: [id number] ACCT: [id number] cc: >
[2017-08-27] MEDS: FLUCONAZOLE 100 MG TABLET PO SCH (18:56)
[2017-08-27] MEDS: PHENAZOPYRIDINE HCL 100 MG TABLET PO SCH (18:57)
[2017-08-27] MEDS: NORMAL SALINE 1000 ML 1,000 ML IV PRN (18:57)
[2017-08-27] MEDS: CEFTRIAXONE SODIUM 1,000 MG in DEXTROSE 5%-WATER 50 ML IV SCH (22:00)
[2017-08-28 05:05] LABS: HEMATOCRIT 26.5 % (36.0-47.0); HEMOGLOBIN 9.2 g/dL (12.0-15.5); MEAN CORPUSCULAR HEMOGLOBIN 31.5 pg (27.0-33.4); MEAN CORPUSCULAR HGB CONC 34.6 g/dL (32.0-36.0); MEAN CORPUSCULAR VOLUME 91 fl (80-97); PLATELET COUNT 160 10^3/uL (150-450); RED BLOOD COUNT 2.91 10^6/uL (3.72-5.28); RED CELL DISTRIBUTION WIDTH 13.7 % (11.5-14.0); WHITE BLOOD COUNT 14.8 10^3/uL (4.0-10.5)
[2017-08-28] MEDS ORDERED: PHENAZOPYRIDINE HCL 100 MG TABLET ONE (05:20)
[2017-08-28 05:22] LABS: ANION GAP 12 (5-19); BLOOD UREA NITROGEN 54 mg/dL (7-20); CALCIUM 8.3 mg/dL (8.4-10.2); CARBON DIOXIDE 18 mmol/L (22-30); CHLORIDE 110 mmol/L (98-107); GLUCOSE 96 mg/dL (75-110); MAGNESIUM 2.1 mg/dL (1.6-2.3); SODIUM 139.7 mmol/L (137-145)
[2017-08-28] MEDS: PHENAZOPYRIDINE HCL 100 MG TABLET PO SCH ×2 (05:33→17:20)
[2017-08-28] MEDS: PANTOPRAZOLE SODIUM 40 MG VIAL IV SCH ×2 (10:26→21:55)
[2017-08-28] MEDS: PAROXETINE HCL 20 MG TABLET PO SCH (10:26)
--- NOTE | 2017-08-28 12:34 | PDOC PROGRESS REPORT ---
Subjective Progress Note for:: 08/28/17 Subjective:: patient is an 81 y/o female admitted for sepsis secondary to UTI from E. Coli. She is doing better today but very weak. She has difficulty ambulating from her chair to the door. She required assistance of a walker today. She does live alone. No fever or chills overnight. No more vomiting or diarrhea. Blood culture has grown E. Coli X2. she is on Rocephin IV. Reason For Visit: SEPSIS,PYELONEPHRITIS,ARF Physical Exam Vital Signs: Temp Pulse Resp BP Pulse Ox 99.0 F 87 24 H 150/53 H 90 L 08/28/17 07:16 08/28/17 07:16 08/28/17 07:16 08/28/17 07:16 08/28/17 07:16 Intake & Output 08/27/17 08/28/17 08/29/17 06:59 06:59 06:59 Intake Total 3091 1846 Output Total 50 650 Balance 3041 1196 Weight 56.6 kg 56.6 kg General appearance: PRESENT: no acute distress, cooperative, well-nourished Head exam: PRESENT: normocephalic Eye exam: PRESENT: conjunctiva pink. ABSENT: nystagmus Mouth exam: PRESENT: moist, neck supple Neck exam: PRESENT: full ROM. ABSENT: carotid bruit, JVD, lymphadenopathy, tenderness, thyromegaly Respiratory exam: PRESENT: clear to auscultation shaunna. ABSENT: accessory muscle use Cardiovascular exam: PRESENT: RRR. ABSENT: diastolic murmur, gallop, rubs Pulses: ABSENT: normal carotid pulses Vascular exam: PRESENT: normal capillary refill. ABSENT: pallor GI/Abdominal exam: PRESENT: normal bowel sounds, soft. ABSENT: guarding, tenderness Extremities exam: ABSENT: calf tenderness, +1 edema Skin exam: PRESENT: normal color. ABSENT: rash Results Laboratory Results: 08/28/17 04:23 08/28/17 04:23 08/28/17 08/28/17 04:23 04:23 WBC 14.8 H RBC 2.91 L Hgb 9.2 L Hct 26.5 L MCV 91 MCH 31.5 MCHC 34.6 RDW 13.7 Plt Count 160 Sodium 139.7 Potassium 4.0 Chloride 110 H Carbon Dioxide 18 L Anion Gap 12 BUN 54 H Creatinine 1.65 H Est GFR ( Amer) 36 L Est GFR (Non-Af Amer) 30 L Glucose 96 Calcium 8.3 L Magnesium 2.1 Impressions: Chest X-Ray 08/25/17 20:36 IMPRESSION: NO SIGNIFICANT RADIOGRAPHIC FINDING IN THE CHEST. Abdomen/Pelvis CT 08/26/17 03:16 IMPRESSION: 1. No acute inflammatory or obstructive abnormality identified. 2. Bilateral nonobstructing renal calculi. 3. Diverticulosis without evidence of acute diverticulitis. 4. Hepatic steatosis. This exam was performed according to our departmental dose-optimization program, which includes automated exposure control, adjustment of the mA and/or kV according to patient size and/or use of iterative reconstruction technique. Assessment & Plan - Diagnosis (1) Bacteremia due to Gram-negative bacteria Is this a current diagnosis for this admission?: Yes Plan: continue Rocephin while in hospital. Can be discharged on cipro to complete course of treatment when ready for discharge (2) Acute renal failure Qualifiers: Acute renal failure type: with acute tubular necrosis Qualified Code(s): N17.0 - Acute kidney failure with tubular necrosis Is this a current diagnosis for this admission?: Yes Plan: continue hydration, repeat cmp in the AM (3) Pyelonephritis Is this a current diagnosis for this admission?: Yes Plan: continue IV Rocephin for now, change to oral cipro at discharge (4) Sepsis Qualifiers: Sepsis type: Escherichia coli Qualified Code(s): A41.51 - Sepsis due to Escherichia coli [E. coli] Is this a current diagnosis for this admission?: Yes Plan: continue antibiotics. Will need assessment for skilled rehab secondary to deconditioning. - Time Time Spent with patient: 25-34 minutes Medications reviewed and adjusted accordingly: Yes Anticipated discharge: Acute Rehab
[2017-08-28] MEDS: FLUCONAZOLE 100 MG TABLET PO SCH (17:20)
[2017-08-28] MEDS: ACETAMINOPHEN 325 MG TABLET PO PRN (21:55)
[2017-08-28] MEDS: CEFTRIAXONE SODIUM 1,000 MG in DEXTROSE 5%-WATER 50 ML IV SCH (21:58)
[2017-08-29] MEDS: PHENAZOPYRIDINE HCL 100 MG TABLET PO SCH (05:11)
[2017-08-29 08:32] LABS: HEMATOCRIT 25.3 % (36.0-47.0); HEMOGLOBIN 8.8 g/dL (12.0-15.5); MEAN CORPUSCULAR HEMOGLOBIN 31.8 pg (27.0-33.4); MEAN CORPUSCULAR HGB CONC 34.6 g/dL (32.0-36.0); MEAN CORPUSCULAR VOLUME 92 fl (80-97); PLATELET COUNT 188 10^3/uL (150-450); RED BLOOD COUNT 2.75 10^6/uL (3.72-5.28); RED CELL DISTRIBUTION WIDTH 13.5 % (11.5-14.0); WHITE BLOOD COUNT 14.9 10^3/uL (4.0-10.5)
[2017-08-29 08:53] LABS: ANION GAP 9 (5-19); BLOOD UREA NITROGEN 34 mg/dL (7-20); CARBON DIOXIDE 19 mmol/L (22-30); CHLORIDE 112 mmol/L (98-107); GLUCOSE 105 mg/dL (75-110); POTASSIUM 3.7 mmol/L (3.6-5.0); SODIUM 140.2 mmol/L (137-145)
[2017-08-29] MEDS: NORMAL SALINE 1000 ML 1,000 ML IV PRN (09:15)
[2017-08-29] MEDS: PAROXETINE HCL 20 MG TABLET PO SCH (09:16)
--- NOTE | 2017-08-29 13:16 | PDOC PROGRESS REPORT ---
Subjective Progress Note for:: 08/29/17 Subjective:: The patient is seen on morning rounds. She is found resting in bed comfortably. She is sleeping when I enter the room but wakes easily when I say her name. She states that she is feeling well today is hopeful to be discharged home soon. She does admit to being rather weak and is concerned about her ability to care for herself as she lives at home alone. She states that she would be interested in a senior care facility for short-term rehab upon discharge. She has no other questions or concerns today. Reason For Visit: SEPSIS,PYELONEPHRITIS,ARF Physical Exam Vital Signs: Temp Pulse Resp BP Pulse Ox 98.8 F 86 15 157/60 H 89 L 08/29/17 12:30 08/29/17 12:30 08/29/17 12:30 08/29/17 12:30 08/29/17 12:30 Intake & Output 08/28/17 08/29/17 08/30/17 06:59 06:59 06:59 Intake Total 1846 1700 236 Output Total 650 2100 200 Balance 1196 -400 36 Weight 56.6 kg 58.2 kg General appearance: PRESENT: no acute distress, well-developed, well-nourished Head exam: PRESENT: atraumatic, normocephalic Eye exam: PRESENT: conjunctiva pink, EOMI, PERRLA. ABSENT: scleral icterus Ear exam: PRESENT: normal external ear exam Mouth exam: PRESENT: moist, tongue midline Neck exam: ABSENT: carotid bruit, JVD, lymphadenopathy, thyromegaly Respiratory exam: PRESENT: clear to auscultation shaunna, symmetrical, unlabored. ABSENT: rales, rhonchi, wheezes Cardiovascular exam: PRESENT: RRR, +S1, +S2. ABSENT: diastolic murmur, rubs, systolic murmur Pulses: PRESENT: normal dorsalis pedis pul Vascular exam: PRESENT: normal capillary refill GI/Abdominal exam: PRESENT: normal bowel sounds, soft. ABSENT: distended, guarding, mass, organolmegaly, rebound, tenderness Rectal exam: PRESENT: deferred Extremities exam: PRESENT: full ROM. ABSENT: calf tenderness, clubbing, pedal edema Neurological exam: PRESENT: alert, awake, oriented to person, oriented to place , oriented to time, oriented to situation, CN II-XII grossly intact. ABSENT: motor sensory deficit Psychiatric exam: PRESENT: appropriate affect, normal mood. ABSENT: homicidal ideation, suicidal ideation Skin exam: PRESENT: dry, intact, warm. ABSENT: cyanosis, rash Results Laboratory Results: 08/29/17 08:13 08/29/17 08:13 08/29/17 08/29/17 08/29/17 07:30 08:13 08:13 WBC 14.9 H RBC 2.75 L Hgb 8.8 L Hct 25.3 L MCV 92 MCH 31.8 MCHC 34.6 RDW 13.5 Plt Count 188 Sodium 140.2 Potassium 3.7 Chloride 112 H Carbon Dioxide 19 L Anion Gap 9 BUN 34 H Creatinine 1.24 Est GFR ( Amer) 50 L Est GFR (Non-Af Amer) 41 L Glucose 105 Calcium 8.0 L Stool Occult Blood POSITIVE Impressions: Chest X-Ray 08/25/17 20:36 IMPRESSION: NO SIGNIFICANT RADIOGRAPHIC FINDING IN THE CHEST. Abdomen/Pelvis CT 08/26/17 03:16 IMPRESSION: 1. No acute inflammatory or obstructive abnormality identified. 2. Bilateral nonobstructing renal calculi. 3. Diverticulosis without evidence of acute diverticulitis. 4. Hepatic steatosis. This exam was performed according to our departmental dose-optimization program, which includes automated exposure control, adjustment of the mA and/or kV according to patient size and/or use of iterative reconstruction technique. Assessment & Plan - Diagnosis (1) Acute renal failure Qualifiers: Acute renal failure type: with acute tubular necrosis Qualified Code(s): N17.0 - Acute kidney failure with tubular necrosis Is this a current diagnosis for this admission?: Yes Plan: Unknown baseline; Creatinine trending down (2.89--> 2.41--> 1.93--> 1.65--> 1.24 ). We will continue gentle IV fluid hydration, encourage p.o. fluids, and avoid nephrotoxic medications. (2) Anemia Qualifiers: Anemia type: unspecified type Qualified Code(s): D64.9 - Anemia, unspecified Is this a current diagnosis for this admission?: Yes Plan: Hgb 10.0--> 7.8--> 7.6--> 9.6 (s/p PRBC) --> 9.2--> 8.8. Anemia of chronic disease versus iron deficiency versus occult GI blood losses. The patient is now status post 2 units packed red blood cells, therefore anemia panel at this time will be unhelpful. The patient has had 2 positive guaiac studies done. She states that she had an EGD approximately 40 years ago that was normal. She states that her last colonoscopy was more recent but was not completed due to concerns "about my intestine anatomy." She states she was told that further routine colonoscopies were considered too dangerous (presumably concern regarding perforation). She denies abnormal findings and stated that she has not had previous positive occult stool in the past. Review of home medications shows that the patient was prescribed both mobic and diclofenac. I believe the patient likely has NSAID induced gastritis with subsequent GI blood losses. No evidence of active bleeding at this time. Will hold all NSAIDS and anticoagulants. Will start PPI. Will monitor H&H, if remains stable, pt may be discharged with outpatient follow up. Otherwise, will consult Dr. Durant. (3) Anxiety with depression Is this a current diagnosis for this admission?: Yes Plan: Will continue home medications: Paxil daily and as needed Xanax. (4) Bacteremia due to Gram-negative bacteria Is this a current diagnosis for this admission?: Yes Plan: Blood cultures: E coli Continue ceftriaxone while inpatient; will transition to p.o. Cipro at discharge. (5) Pyelonephritis Is this a current diagnosis for this admission?: Yes Plan: Secondary to E. Coli UTI. Plan as above. (6) Sepsis Qualifiers: Sepsis type: Escherichia coli Qualified Code(s): A41.51 - Sepsis due to Escherichia coli [E. coli] Is this a current diagnosis for this admission?: Yes Plan: Improved. Secondary to E. Coli bacteremia, UTI, pyleonephritis. Plan as above. (7) Guaiac positive stools Is this a current diagnosis for this admission?: Yes Plan: Plan as above. (8) Hypokalemia Is this a current diagnosis for this admission?: Yes Plan: Replete. - Time Time Spent with patient: 35 or more minutes Medications reviewed and adjusted accordingly: Yes Anticipated discharge: SNF Within: within 24 hours
[2017-08-29] MEDS: FLUCONAZOLE 100 MG TABLET PO SCH (17:43)
[2017-08-29] MEDS: ACETAMINOPHEN 325 MG TABLET PO PRN (17:44)
[2017-08-29] MEDS: CEFTRIAXONE SODIUM 1,000 MG in DEXTROSE 5%-WATER 50 ML IV SCH (21:24)
[2017-08-29] MEDS: ALPRAZOLAM 0.25 MG TABLET PO PRN (21:24)
[2017-08-29] MEDS: FAMOTIDINE 20 MG TABLET PO SCH (21:24)
[2017-08-30] MEDS: ACETAMINOPHEN 325 MG TABLET PO PRN ×3 (02:37→20:31)
[2017-08-30 05:03] LABS: HEMATOCRIT 24.5 % (36.0-47.0); HEMOGLOBIN 8.4 g/dL (12.0-15.5); MEAN CORPUSCULAR HEMOGLOBIN 31.1 pg (27.0-33.4); MEAN CORPUSCULAR HGB CONC 34.3 g/dL (32.0-36.0); MEAN CORPUSCULAR VOLUME 91 fl (80-97); PLATELET COUNT 240 10^3/uL (150-450); RED CELL DISTRIBUTION WIDTH 13.7 % (11.5-14.0); WHITE BLOOD COUNT 16.1 10^3/uL (4.0-10.5)
[2017-08-30 05:25] LABS: ANION GAP 9 (5-19); BLOOD UREA NITROGEN 23 mg/dL (7-20); CALCIUM 7.8 mg/dL (8.4-10.2); CARBON DIOXIDE 19 mmol/L (22-30); CHLORIDE 111 mmol/L (98-107); GLUCOSE 112 mg/dL (75-110); POTASSIUM 3.6 mmol/L (3.6-5.0); SODIUM 139.4 mmol/L (137-145)
[2017-08-30] MEDS: PAROXETINE HCL 20 MG TABLET PO SCH (09:16)
[2017-08-30] MEDS: FAMOTIDINE 20 MG TABLET PO SCH ×2 (09:41→21:08)
--- NOTE | 2017-08-30 12:25 | PDOC PROGRESS REPORT ---
Subjective Progress Note for:: 08/30/17 Subjective:: The patient is an 81-year-old female with past medical history of hypertension, depression, anxiety who was admitted on 08/26/17 for sepsis secondary to pyelonephritis. Now on Ceftriaxone. She additionally reported a history of dark stools and chronic NSAID use. Occult stools were positive and she required 2 units PRBC. Her Hgb did respond appropriately but has since slowly trended downward. She is seen resting in bed comfortably. She states she did not sleep well due to fever overnight. Otherwise, she is feeling fine. EGD planned for tomorrow. Reason For Visit: SEPSIS,PYELONEPHRITIS,ARF Physical Exam Vital Signs: Temp Pulse Resp BP Pulse Ox 98.4 F 71 23 H 139/54 H 93 08/30/17 07:57 08/30/17 07:57 08/30/17 07:57 08/30/17 07:57 08/30/17 07:57 Intake & Output 08/29/17 08/30/17 08/31/17 06:59 06:59 06:59 Intake Total 1700 2023 Output Total 2100 200 Balance -400 1823 Weight 58.2 kg 57.9 kg General appearance: PRESENT: no acute distress, well-developed, well-nourished Head exam: PRESENT: atraumatic, normocephalic Eye exam: PRESENT: conjunctiva pink, EOMI, PERRLA. ABSENT: scleral icterus Ear exam: PRESENT: normal external ear exam Mouth exam: PRESENT: moist, tongue midline Neck exam: ABSENT: carotid bruit, JVD, lymphadenopathy, thyromegaly Respiratory exam: PRESENT: clear to auscultation shaunna, symmetrical, unlabored. ABSENT: rales, rhonchi, wheezes Cardiovascular exam: PRESENT: RRR. ABSENT: diastolic murmur, rubs, systolic murmur Pulses: PRESENT: normal dorsalis pedis pul Vascular exam: PRESENT: normal capillary refill GI/Abdominal exam: PRESENT: normal bowel sounds, soft. ABSENT: distended, guarding, mass, organolmegaly, rebound, tenderness Rectal exam: PRESENT: deferred Extremities exam: PRESENT: full ROM. ABSENT: calf tenderness, clubbing, pedal edema Neurological exam: PRESENT: alert, awake, oriented to person, oriented to place , oriented to time, oriented to situation, CN II-XII grossly intact. ABSENT: motor sensory deficit Psychiatric exam: PRESENT: appropriate affect, normal mood. ABSENT: homicidal ideation, suicidal ideation Skin exam: PRESENT: dry, intact, warm. ABSENT: cyanosis, rash Results Laboratory Results: 08/30/17 04:08 08/30/17 04:08 08/30/17 08/30/17 04:08 04:08 WBC 16.1 H RBC 2.70 L Hgb 8.4 L Hct 24.5 L MCV 91 MCH 31.1 MCHC 34.3 RDW 13.7 Plt Count 240 Sodium 139.4 Potassium 3.6 Chloride 111 H Carbon Dioxide 19 L Anion Gap 9 BUN 23 H Creatinine 1.01 Est GFR ( Amer) > 60 Est GFR (Non-Af Amer) 52 L Glucose 112 H Calcium 7.8 L 08/27/17 01:41 Clean Catch Midstream Urine Culture - Final NO GROWTH 2 DAYS Impressions: Chest X-Ray 08/25/17 20:36 IMPRESSION: NO SIGNIFICANT RADIOGRAPHIC FINDING IN THE CHEST. Abdomen/Pelvis CT 08/26/17 03:16 IMPRESSION: 1. No acute inflammatory or obstructive abnormality identified. 2. Bilateral nonobstructing renal calculi. 3. Diverticulosis without evidence of acute diverticulitis. 4. Hepatic steatosis. This exam was performed according to our departmental dose-optimization program, which includes automated exposure control, adjustment of the mA and/or kV according to patient size and/or use of iterative reconstruction technique. Assessment & Plan - Diagnosis (1) GI bleed due to NSAIDs Is this a current diagnosis for this admission?: Yes Plan: Pt with report of dark stools, guiac positive, and anemia now s/p 2 units PRBC. Hgb currently 8.4 and slowly trending downward. Reports heavy NSAID use at home to include mobic, diclofenac, and otc medications. Will avoid all NSAIDs. Patient was started on PPI yesterday. Have consulted Dr. Durant, who plans for EGD tomorrow. (2) Acute renal failure Qualifiers: Acute renal failure type: with acute tubular necrosis Qualified Code(s): N17.0 - Acute kidney failure with tubular necrosis Is this a current diagnosis for this admission?: Yes Plan: Resolved. Unknown baseline; Creatinine now 1.01. We will continue gentle IV fluid hydration, encourage p.o. fluids, and avoid nephrotoxic medications. (3) Anemia Qualifiers: Anemia type: unspecified type Qualified Code(s): D64.9 - Anemia, unspecified Is this a current diagnosis for this admission?: Yes Plan: Anemia of chronic disease versus iron deficiency versus occult GI blood losses. The patient is now status post 2 units packed red blood cells, therefore anemia panel at this time will be unhelpful. The patient has had 2 positive guaiac studies done. Review of home medications shows that the patient was prescribed both mobic and diclofenac. She additionally admits to heavy [id number] NSAID use for her arthritic pain. I believe the patient likely has NSAID induced gastritis/ ulcer with subsequent GI blood losses. No evidence of active bleeding at this time. Will hold all NSAIDS and anticoagulants. Continue PPI. Will monitor H&H and transfuse for Hgb <8. (4) Anxiety with depression Is this a current diagnosis for this admission?: Yes Plan: Will continue home medications: Paxil daily and as needed Xanax. (5) Bacteremia due to Gram-negative bacteria Is this a current diagnosis for this admission?: Yes Plan: Blood cultures: E coli Continue ceftriaxone while inpatient; will transition to p.o. Cipro at discharge. (6) Pyelonephritis Is this a current diagnosis for this admission?: Yes Plan: Secondary to E. Coli UTI. Plan as above. (7) Sepsis Qualifiers: Sepsis type: Escherichia coli Qualified Code(s): A41.51 - Sepsis due to Escherichia coli [E. coli] Is this a current diagnosis for this admission?: Yes Plan: Improved. Secondary to E. Coli bacteremia, UTI, pyleonephritis. Plan as above. (8) Guaiac positive stools Is this a current diagnosis for this admission?: Yes Plan: Plan as above. (9) Hypokalemia Is this a current diagnosis for this admission?: Yes Plan: Replete. - Time Time Spent with patient: 25-34 minutes Medications reviewed and adjusted accordingly: Yes Anticipated discharge: SNF - for short term rehab
[2017-08-30] MEDS: NORMAL SALINE 1000 ML 1,000 ML IV PRN (14:32)
--- NOTE | 2017-08-30 17:51 | PDOC CONSULTATION ---
Consultation Consult Date: 08/30/17 Attending physician:: IRIS DUNCAN Consult reason:: anemia, possible GI bleed History of Present Illness Admission Date/PCP: 08/26/17 04:48 History of Present Illness: I am asked to see this patient by the Hospitalist service was admitted for other reasons noted to be anemic did have to receive blood transfusions now Hgb is trending down, states that has had stomach discomfort for several months started around Thanksgiving patient states had dark stools positive gastrocult history of H2 tiara use in past now admits to melena, decrease appetite and some early satiety patient says no weight loss asked to see if EGD is indicated patient certainly has the possibility of peptic ulcer disease Past Medical History Cardiac Medical History: Reports: Hypertension Psychiatric Medical History: Reports: Depression Past Surgical History Past Surgical History: Reports: Hysterectomy Social History Smoking Status: Never Smoker Frequency of Alcohol Use: None Hx Recreational Drug Use: No Drugs: None Hx Prescription Drug Abuse: No - Advance Directive Resuscitation Status: Full Code Family History Family History: CAD Parental Family History Reviewed: Yes Children Family History Reviewed: Unknown Sibling(s) Family History Reviewed.: Unknown Medication/Allergy Home Medications: Alprazolam [Xanax 0.25 mg Tablet] 0.25 mg PO DAILY 08/26/17 Diclofenac Sodium [Voltaren] 75 mg PO BIDP PRN 08/26/17 Estradiol [Estrace] 0.5 mg PO DAILY 08/26/17 Lovastatin [Altoprev] 20 mg PO QPM 08/26/17 Meloxicam [Mobic] 7.5 mg PO DAILY 08/26/17 Mirabegron [Myrbetriq] 50 mg PO DAILY 08/26/17 Paroxetine HCl [Paxil] 40 mg PO DAILY 08/26/17 Valsartan/Hydrochlorothiazide [Diovan Hct 320-12.5 mg Tab] 1 tab PO DAILY Allergies/Adverse Reactions: Penicillins Allergy (Verified 08/25/17 19:20) Review of Systems Constitutional: ABSENT: fever(s), headache(s), night sweats, weakness Eyes: ABSENT: visual disturbances Ears: ABSENT: hearing changes Nose, Mouth, and Throat: ABSENT: mouth pain, sore throat Cardiovascular: ABSENT: edema, orthropnea, palpitations Respiratory: ABSENT: dyspnea, sputum Gastrointestinal: PRESENT: melena. ABSENT: hematochezia Genitourinary: ABSENT: dysuria, hematuria, nocturia Musculoskeletal: ABSENT: deformity Neurological: ABSENT: syncope, tingling, tremor(s), vertigo Endocrine: ABSENT: polydipsia, polyphagia, polyuria Hematologic/Lymphatic: PRESENT: easy bruising Physical Exam Vital Signs: Temp Pulse Resp BP Pulse Ox 98.0 F 84 17 173/66 H 96 08/30/17 15:45 08/30/17 15:45 08/30/17 15:45 08/30/17 15:45 08/30/17 15:45 Intake & Output 08/29/17 08/30/17 08/31/17 06:59 06:59 06:59 Intake Total 1700 2023 310 Output Total 2100 200 Balance -400 1823 310 Weight 58.2 kg 57.9 kg General appearance: PRESENT: no acute distress, well-developed, well-nourished Head exam: PRESENT: atraumatic, normocephalic Eye exam: PRESENT: EOMI, PERRLA. ABSENT: nystagmus, periorbital swelling, scleral icterus Mouth exam: PRESENT: moist, neck supple Throat exam: ABSENT: tonsillar exudate, tonsillogmegaly Neck exam: ABSENT: meningismus, tenderness, thyromegaly Respiratory exam: PRESENT: symmetrical, unlabored. ABSENT: tachypnea, wheezes Cardiovascular exam: PRESENT: RRR, +S1, +S2 GI/Abdominal exam: PRESENT: soft. ABSENT: rebound, rigid, tenderness Extremities exam: ABSENT: joint swelling Musculoskeletal exam: PRESENT: full ROM Neurological exam: PRESENT: oriented to time, oriented to situation, CN II-XII grossly intact Focused psych exam: ABSENT: restlessness Skin exam: PRESENT: normal color. ABSENT: mottled, pallor, petechiae, urticaria , vesicles Results Laboratory Results: 08/30/17 04:08 08/30/17 04:08 08/30/17 08/30/17 04:08 04:08 WBC 16.1 H RBC 2.70 L Hgb 8.4 L Hct 24.5 L MCV 91 MCH 31.1 MCHC 34.3 RDW 13.7 Plt Count 240 Sodium 139.4 Potassium 3.6 Chloride 111 H Carbon Dioxide 19 L Anion Gap 9 BUN 23 H Creatinine 1.01 Est GFR ( Amer) > 60 Est GFR (Non-Af Amer) 52 L Glucose 112 H Calcium 7.8 L 08/27/17 01:41 Clean Catch Midstream Urine Culture - Final NO GROWTH 2 DAYS Impressions: Chest X-Ray 08/25/17 20:36 IMPRESSION: NO SIGNIFICANT RADIOGRAPHIC FINDING IN THE CHEST. Abdomen/Pelvis CT 08/26/17 03:16 IMPRESSION: 1. No acute inflammatory or obstructive abnormality identified. 2. Bilateral nonobstructing renal calculi. 3. Diverticulosis without evidence of acute diverticulitis. 4. Hepatic steatosis. This exam was performed according to our departmental dose-optimization program, which includes automated exposure control, adjustment of the mA and/or kV according to patient size and/or use of iterative reconstruction technique. Assessment & Plan - Diagnosis (1) GI bleed due to NSAIDs Is this a current diagnosis for this admission?: Yes Plan: could have peptic ulcer disease and patient will need an EGD Risks, benefits and alternatives are discussed with the patient in detail she is willing to proceed further recommendations to follow continue with PPI use discontinue all NSAIDS watch H/H transfuse as necessary further recommendations to follow - Time Time Spent: 50 to 70 Minutes
[2017-08-30] MEDS: FLUCONAZOLE 100 MG TABLET PO SCH (19:05)
[2017-08-30] MEDS: CEFTRIAXONE SODIUM 1,000 MG in DEXTROSE 5%-WATER 50 ML IV SCH (21:08)
[2017-08-30] MEDS: ALPRAZOLAM 0.25 MG TABLET PO PRN (21:10)
[2017-08-31 05:23] LABS: HEMATOCRIT 26.8 % (36.0-47.0); MEAN CORPUSCULAR HEMOGLOBIN 30.8 pg (27.0-33.4); MEAN CORPUSCULAR HGB CONC 33.6 g/dL (32.0-36.0); MEAN CORPUSCULAR VOLUME 92 fl (80-97); PLATELET COUNT 333 10^3/uL (150-450); RED BLOOD COUNT 2.92 10^6/uL (3.72-5.28); RED CELL DISTRIBUTION WIDTH 13.7 % (11.5-14.0); WHITE BLOOD COUNT 16.5 10^3/uL (4.0-10.5)
[2017-08-31 05:51] LABS: ANION GAP 11 (5-19); BLOOD UREA NITROGEN 17 mg/dL (7-20); CALCIUM 8.2 mg/dL (8.4-10.2); CARBON DIOXIDE 20 mmol/L (22-30); CHLORIDE 110 mmol/L (98-107); GLUCOSE 86 mg/dL (75-110); POTASSIUM 3.7 mmol/L (3.6-5.0); SODIUM 140.8 mmol/L (137-145)
[2017-08-31] MEDS: ACETAMINOPHEN 325 MG TABLET PO PRN ×2 (10:52→22:23)
[2017-08-31] MEDS: VALSARTAN 80 MG TABLET PO SCH (10:52)
[2017-08-31] MEDS: FAMOTIDINE 20 MG TABLET PO SCH ×2 (10:53→22:23)
[2017-08-31] MEDS: PAROXETINE HCL 20 MG TABLET PO SCH (10:53)
--- NOTE | 2017-08-31 11:06 | PDOC PROGRESS REPORT ---
Subjective Progress Note for:: 08/31/17 Subjective:: The patient is an 81-year-old female with past medical history of hypertension, depression, anxiety who was admitted on 08/26/17 for sepsis secondary to pyelonephritis. Now on Ceftriaxone. She additionally reported a history of dark stools and chronic NSAID use. Occult stools were positive and she required 2 units PRBC. She is seen resting in bed comfortably. She states that she is feeling well today; reporting that her abdominal and back pain have resolved. EGD planned for today. Pending recommendations from GI, the patient should be ready for discharge to [facility] for short-term rehab in the morning. Reason For Visit: SEPSIS,PYELONEPHRITIS,ARF Physical Exam Vital Signs: Temp Pulse Resp BP Pulse Ox 98.1 F 91 17 158/67 H 96 08/31/17 07:41 08/31/17 07:41 08/31/17 07:41 08/31/17 07:41 08/31/17 09:20 Intake & Output 08/30/17 08/31/17 09/01/17 06:59 06:59 06:59 Intake Total 3 2160 Output Total 200 Balance 1823 2160 Weight 57.9 kg 57.2 kg General appearance: PRESENT: no acute distress, well-developed, well-nourished, other - overweight Head exam: PRESENT: atraumatic, normocephalic Eye exam: PRESENT: conjunctiva pink, EOMI, PERRLA. ABSENT: scleral icterus Ear exam: PRESENT: normal external ear exam Mouth exam: PRESENT: moist, tongue midline Neck exam: ABSENT: carotid bruit, JVD, lymphadenopathy, thyromegaly Respiratory exam: PRESENT: clear to auscultation shaunna. ABSENT: rales, rhonchi, wheezes Cardiovascular exam: PRESENT: RRR. ABSENT: diastolic murmur, rubs, systolic murmur Pulses: PRESENT: normal dorsalis pedis pul Vascular exam: PRESENT: normal capillary refill GI/Abdominal exam: PRESENT: normal bowel sounds, soft. ABSENT: distended, guarding, mass, organolmegaly, rebound, tenderness Rectal exam: PRESENT: deferred Extremities exam: PRESENT: full ROM. ABSENT: calf tenderness, clubbing, pedal edema Neurological exam: PRESENT: alert, awake, oriented to person, oriented to place , oriented to time, oriented to situation, CN II-XII grossly intact. ABSENT: motor sensory deficit Psychiatric exam: PRESENT: appropriate affect, normal mood. ABSENT: homicidal ideation, suicidal ideation Skin exam: PRESENT: dry, intact, warm. ABSENT: cyanosis, rash Results Laboratory Results: 08/31/17 04:13 08/31/17 04:13 08/31/17 08/31/17 04:13 04:13 WBC 16.5 H RBC 2.92 L Hgb 9.0 L Hct 26.8 L MCV 92 MCH 30.8 MCHC 33.6 RDW 13.7 Plt Count 333 Sodium 140.8 Potassium 3.7 Chloride 110 H Carbon Dioxide 20 L Anion Gap 11 BUN 17 Creatinine 0.80 Est GFR ( Amer) > 60 Est GFR (Non-Af Amer) > 60 Glucose 86 Calcium 8.2 L Impressions: Chest X-Ray 08/25/17 20:36 IMPRESSION: NO SIGNIFICANT RADIOGRAPHIC FINDING IN THE CHEST. Abdomen/Pelvis CT 08/26/17 03:16 IMPRESSION: 1. No acute inflammatory or obstructive abnormality identified. 2. Bilateral nonobstructing renal calculi. 3. Diverticulosis without evidence of acute diverticulitis. 4. Hepatic steatosis. This exam was performed according to our departmental dose-optimization program, which includes automated exposure control, adjustment of the mA and/or kV according to patient size and/or use of iterative reconstruction technique. Assessment & Plan - Diagnosis (1) GI bleed due to NSAIDs Is this a current diagnosis for this admission?: Yes Plan: Pt with report of dark stools, guiac positive, and anemia now s/p 2 units PRBC. Hgb up slightly today. Reports heavy NSAID use at home to include mobic, diclofenac, and otc medications. Will avoid all NSAIDs. Continue PPI. Have consulted Dr. Durant, who plans for EGD today. Appreciate his assistance and recommendations. (2) Acute renal failure Qualifiers: Acute renal failure type: with acute tubular necrosis Qualified Code(s): N17.0 - Acute kidney failure with tubular necrosis Is this a current diagnosis for this admission?: Yes Plan: Resolved. Unknown baseline; Creatinine now 0.80. We will continue gentle IV fluid hydration, encourage p.o. fluids, and avoid nephrotoxic medications. (3) Anemia Qualifiers: Anemia type: unspecified type Qualified Code(s): D64.9 - Anemia, unspecified Is this a current diagnosis for this admission?: Yes Plan: Anemia of chronic disease versus iron deficiency versus occult GI blood losses. The patient is now status post 2 units packed red blood cells, therefore anemia panel at this time will be unhelpful. The patient has had 2 positive guaiac studies done. Review of home medications shows that the patient was prescribed both mobic and diclofenac. She additionally admits to heavy [id number] NSAID use for her arthritic pain. I believe the patient likely has NSAID induced gastritis/ ulcer with subsequent GI blood losses. No evidence of active bleeding at this time. Will hold all NSAIDS and anticoagulants. Continue PPI. Will monitor H&H and transfuse for Hgb <8. (4) Anxiety with depression Is this a current diagnosis for this admission?: Yes Plan: Will continue home medications: Paxil daily and as needed Xanax. (5) Bacteremia due to Gram-negative bacteria Is this a current diagnosis for this admission?: Yes Plan: Blood cultures: E coli Continue ceftriaxone while inpatient; will transition to p.o. Cipro at discharge. (6) Pyelonephritis Is this a current diagnosis for this admission?: Yes Plan: Secondary to E. Coli UTI. Plan as above. (7) Sepsis Qualifiers: Sepsis type: Escherichia coli Qualified Code(s): A41.51 - Sepsis due to Escherichia coli [E. coli] Is this a current diagnosis for this admission?: Yes Plan: Improved. Secondary to E. Coli bacteremia, UTI, pyleonephritis. Plan as above. (8) Guaiac positive stools Is this a current diagnosis for this admission?: Yes Plan: Plan as above. (9) Hypokalemia Is this a current diagnosis for this admission?: Yes Plan: Replete. - Time Time Spent with patient: 15-24 minutes Medications reviewed and adjusted accordingly: Yes Anticipated discharge: [facility]
[2017-08-31] MEDS ORDERED: ONDANSETRON HCL INJ/PF 4 MG/2 ML SDV ONE (12:13)
[2017-08-31] MEDS ORDERED: NALOXONE HCL INJ/PF 0.4 MG/1 ML SDV ONE (12:14)
[2017-08-31] MEDS ORDERED: FENTANYL CITRATE INJ/PF 100 MCG/2 ML AMPUL ONE (12:14)
[2017-08-31] MEDS ORDERED: EPINEPHRINE INJ 1 MG/10 ML DISP.SYRIN ONE (12:15)
[2017-08-31] MEDS ORDERED: FLUMAZENIL INJ 0.5 MG/5 ML VIAL ONE (12:15)
[2017-08-31] MEDS: MIDAZOLAM 2 MG/2 ML INJ ONE ×2 (12:40→12:44)
--- NOTE | 2017-08-31 13:00 | Operative Report ---
Operative Report DATE OF SURGERY: 08/31/17 Operative Report: The risks benefits and alternatives of the procedure explained to the patient in detail and informed consent is obtained.A GIF Olympus video scope was inserted into the patient's mouth and hypopharynx, the esophagus is identified intubated and insufflated, the scope was then advanced through the esophagus stomach and duodenum, retroflexion maneuver is done, the esophagus stomach and first and second portions of the duodenum examined PREOPERATIVE DIAGNOSIS: Melena POSTOPERATIVE DIAGNOSIS: Clean-based duodenal ulcer. Gastritis status post biopsy rule out Helicobacter pylori. Hiatal hernia OPERATION: EGD with biopsy SURGEON: IRIS DUNCAN ANESTHESIA: Moderate Sedation - 3 mg of Versed, 25 mcg of fentanyl. Conscious sedation monitoring time 30 minutes. TISSUE REMOVED OR ALTERED: As noted above. COMPLICATIONS: None. ESTIMATED BLOOD LOSS: None. INTRAOPERATIVE FINDINGS: As noted above. PROCEDURE: Patient tolerated the procedure well. No immediate postprocedure complications are noted. Patient sent back to her room in good condition. Resume regular diet Resume regular activity level We will wait on biopsy Treat for Helicobacter pylori if positive Follow-up EGD in 4-6 weeks to document healing
[2017-08-31] MEDS: NORMAL SALINE 1000 ML 1,000 ML IV PRN (15:36)
[2017-08-31] MEDS: CEFTRIAXONE SODIUM 1,000 MG in DEXTROSE 5%-WATER 50 ML IV SCH (22:23)
[2017-09-01 05:28] LABS: HEMATOCRIT 24.6 % (36.0-47.0); HEMOGLOBIN 8.3 g/dL (12.0-15.5); MEAN CORPUSCULAR HEMOGLOBIN 30.8 pg (27.0-33.4); MEAN CORPUSCULAR HGB CONC 33.7 g/dL (32.0-36.0); MEAN CORPUSCULAR VOLUME 91 fl (80-97); PLATELET COUNT 394 10^3/uL (150-450); RED CELL DISTRIBUTION WIDTH 13.8 % (11.5-14.0)
[2017-09-01 05:50] LABS: ANION GAP 11 (5-19); BLOOD UREA NITROGEN 13 mg/dL (7-20); CALCIUM 7.9 mg/dL (8.4-10.2); CARBON DIOXIDE 19 mmol/L (22-30); CHLORIDE 110 mmol/L (98-107); GLUCOSE 87 mg/dL (75-110); POTASSIUM 3.5 mmol/L (3.6-5.0); SODIUM 139.5 mmol/L (137-145)
[2017-09-01] MEDS: ALPRAZOLAM 0.25 MG TABLET PO PRN (06:05)
[2017-09-01] MEDS: VALSARTAN 80 MG TABLET PO SCH (10:04)
[2017-09-01] MEDS: FAMOTIDINE 20 MG TABLET PO SCH (10:04)
[2017-09-01] MEDS: PAROXETINE HCL 20 MG TABLET PO SCH (10:04)
--- NOTE | 2017-09-01 10:16 | PDOC DISCHARGE SUMMARY ---
General - Admit/Disc Date/PCP Admission Date/Primary Care Provider: 08/26/17 04:48 Discharge Date: 09/01/17 - Discharge Diagnosis (1) GI bleed due to NSAIDs Is this a current diagnosis for this admission?: Yes Summary: On admission, the patient reported several days of melena. Occult stools were positive for blood. On day 2 of her admission, her hemoglobin dropped from 10.0 -7.8 and therefore was transfused 2 units packed red blood cells. Gastroenterology was consulted who completed an EGD treated a duodenal ulcer. Biopsies were obtained are pending at time of dictation.. The patient has been placed on PPI. She has been educated on importance of avoidance of NSAIDs. Follow-up with gastroenterology in 4-6 weeks. (2) Duodenal ulcer Is this a current diagnosis for this admission?: Yes Summary: As above. (3) Acute renal failure Is this a current diagnosis for this admission?: Yes Summary: Secondary to fluid volume depletion in the setting of sepsis and acute blood loss anemia. She had received IV fluid resuscitation as well as 2 units of packed red blood cells. Her creatinine has returned to normal values and on day of discharge, noted to have a creatinine of 0.70 and an eGFR of greater than 60. (4) Anemia Is this a current diagnosis for this admission?: Yes Summary: Secondary to GI blood losses. The patient is now status post 2 units packed red blood cells. Recommend follow-up hemoglobin in 1 week. (5) Pyelonephritis Is this a current diagnosis for this admission?: Yes Summary: The patient was admitted with sepsis and UTI. Blood cultures revealed pansensitive E. coli. A CT of the abdomen and pelvis demonstrated bilateral nonobstructive renal calculi, diverticulosis without evidence of acute diverticulitis, and hepatic steatosis. The patient has been treated with IV Rocephin. She has been afebrile for greater than hours. She is transitioned to p.o. ciprofloxacin to continue her 10 days after discharge for a total of 16 days of antibiotic therapies. (6) Sepsis Is this a current diagnosis for this admission?: Yes Summary: Resolved. (7) Bacteremia due to Gram-negative bacteria Is this a current diagnosis for this admission?: Yes Summary: Agent was found to have pansensitive E. coli bacteremia secondary to pyelonephritis. Was treated with IV Rocephin while inpatient and has been transitioned to p.o. ciprofloxacin 10 you for 10 days following discharge. (8) Guaiac positive stools Is this a current diagnosis for this admission?: Yes (9) Anxiety with depression Is this a current diagnosis for this admission?: Yes Summary: Stable. The patient's home medications of Paxil and alprazolam were continued. (10) Hypokalemia Is this a current diagnosis for this admission?: Yes Summary: Replete. - Additional Information Resuscitation Status: Full Code Discharge Diet: As Tolerated Discharge Activity: Activity As Tolerated, Balance Activity w/Rest, Slowly Increase Activity Prescriptions: Ciprofloxacin HCl [Cipro 500 mg Tablet] 500 mg PO BID #20 tablet Famotidine [Pepcid 20 mg Tablet] 20 mg PO Q12 #60 tablet Home Medications: Alprazolam [Xanax 0.25 mg Tablet] 0.25 mg PO DAILY 08/26/17 Estradiol [Estrace] 0.5 mg PO DAILY 08/26/17 Lovastatin [Altoprev] 20 mg PO QPM 08/26/17 Mirabegron [Myrbetriq] 50 mg PO DAILY 08/26/17 Paroxetine HCl [Paxil] 40 mg PO DAILY 08/26/17 Valsartan/Hydrochlorothiazide [Diovan Hct 320-12.5 mg Tab] 1 tab PO DAILY Acetaminophen [Tylenol 325 mg Tablet] 650 mg PO Q4HP PRN tablet 09/01/17 Ciprofloxacin HCl [Cipro 500 mg Tablet] 500 mg PO BID #20 tablet 09/01/17 Famotidine [Pepcid 20 mg Tablet] 20 mg PO Q12 #60 tablet 09/01/17 History of Present Illness History of Present Illness: H&P by Dr. Tejeda: LOUISA GUERRA is a 81 year old female a past medical history of hypertension, depression, anxiety presents to the emergency department with complaints of chills and generalized malaise. Patient reports that starting on Monday she began having chills subsequently developed into body aches. She reports she has been having abdominal chest and head and leg pain. She took some Tylenol and Midol. She states she has been eating and drinking very little over the past week and noted that her urine was dark however noted urgency frequency and dysuria. Patient reports she took Azo. She reports that she does have a slight cough but it is dry. She reports nausea but dry heaves no actual vomiting. And has a couple of days ago had some dark stool. Patient is found to have UTI likely acute renal failure and sepsis and is referred to the hospitalist service for admission. Hospital Course Hospital Course: She was admitted with sepsis secondary to pyelonephritis. Blood cultures revealed E. coli. She was placed on IV Rocephin and received adequate IV fluid resuscitation. She was additionally transfused 2 units of packed red blood cells. The patient had a history of recent melena with positive black stools. Therefore, gastroenterology was consulted who conducted an EGD on 08/31/17 finding a duodenal ulcer. The patient has been placed on PPIs and instructed to avoid all NSAIDs. Biopsies to evaluate for H pylori are pending, the patient is instructed to follow-up with Dr. Durant's office in 4-6 weeks. On day of discharge, the patient is stable, pain-free, afebrile greater than 48 hours, has been transitioned to p.o. ciprofloxacin. Recommend that a repeat H& H be obtained week. She should follow-up with her primary care provider within 1-2 weeks following her discharge from [facility] where she will be transferred for short-term rehabilitation. Physical Exam Vital Signs: Temp Pulse Resp BP Pulse Ox 98.6 F 88 18 125/86 H 94 09/01/17 07:56 09/01/17 07:56 09/01/17 07:56 09/01/17 07:56 09/01/17 07:56 Intake & Output 08/31/17 09/01/17 09/02/17 06:59 06:59 06:59 Intake Total 2160 2300 Output Total 200 Balance 2160 2300 -200 Weight 57.2 kg 57.1 kg General appearance: PRESENT: no acute distress, well-developed, well-nourished Head exam: PRESENT: atraumatic, normocephalic Eye exam: PRESENT: conjunctiva pink, EOMI, PERRLA. ABSENT: scleral icterus Ear exam: PRESENT: normal external ear exam Mouth exam: PRESENT: moist, tongue midline Neck exam: ABSENT: carotid bruit, JVD, lymphadenopathy, thyromegaly Respiratory exam: PRESENT: clear to auscultation shaunna, symmetrical, unlabored. ABSENT: rales, rhonchi, wheezes Cardiovascular exam: PRESENT: RRR. ABSENT: diastolic murmur, rubs, systolic murmur Pulses: PRESENT: normal dorsalis pedis pul Vascular exam: PRESENT: normal capillary refill GI/Abdominal exam: PRESENT: normal bowel sounds, soft. ABSENT: distended, guarding, mass, organolmegaly, rebound, tenderness Rectal exam: PRESENT: deferred Extremities exam: PRESENT: full ROM. ABSENT: calf tenderness, clubbing, pedal edema Neurological exam: PRESENT: alert, awake, oriented to person, oriented to place , oriented to time, oriented to situation, CN II-XII grossly intact. ABSENT: motor sensory deficit Psychiatric exam: PRESENT: appropriate affect, normal mood. ABSENT: homicidal ideation, suicidal ideation Skin exam: PRESENT: dry, intact, warm. ABSENT: cyanosis, rash Results Laboratory Results: 09/01/17 04:39 09/01/17 04:39 09/01/17 09/01/17 04:39 04:39 WBC 16.0 H RBC 2.70 L Hgb 8.3 L Hct 24.6 L MCV 91 MCH 30.8 MCHC 33.7 RDW 13.8 Plt Count 394 Sodium 139.5 Potassium 3.5 L Chloride 110 H Carbon Dioxide 19 L Anion Gap 11 BUN 13 Creatinine 0.70 Est GFR ( Amer) > 60 Est GFR (Non-Af Amer) > 60 Glucose 87 Calcium 7.9 L Impressions: Chest X-Ray 08/25/17 20:36 IMPRESSION: NO SIGNIFICANT RADIOGRAPHIC FINDING IN THE CHEST. Abdomen/Pelvis CT 08/26/17 03:16 IMPRESSION: 1. No acute inflammatory or obstructive abnormality identified. 2. Bilateral nonobstructing renal calculi. 3. Diverticulosis without evidence of acute diverticulitis. 4. Hepatic steatosis. This exam was performed according to our departmental dose-optimization program, which includes automated exposure control, adjustment of the mA and/or kV according to patient size and/or use of iterative reconstruction technique. Qualifiers PATEINT BEING DISCHARGED WITH ANY OF THE FOLLOWING DIAGNOSIS?: No
--- NOTE | 2017-09-01 10:17 | PDOC PROGRESS REPORT ---
Subjective Progress Note for:: 09/01/17 Subjective:: patient tolerated her procedure well did have a clean based duodenal ulcer, no active bleeding accompanied by some gastritis biopsies are obtained these are still pending stable H/H may have H.pylori that needs to be treated will see as outpatient repeat EGD in 4-6 weeks no overnight events, diet has been resumed will need to be discharged on a PPI Reason For Visit: SEPSIS,PYELONEPHRITIS,ARF Physical Exam Vital Signs: Temp Pulse Resp BP Pulse Ox 98.6 F 88 18 125/86 H 94 09/01/17 07:56 09/01/17 07:56 09/01/17 07:56 09/01/17 07:56 09/01/17 07:56 Intake & Output 08/31/17 09/01/17 09/02/17 06:59 06:59 06:59 Intake Total 2160 2300 Output Total 200 Balance 2160 2300 -200 Weight 57.2 kg 57.1 kg General appearance: PRESENT: no acute distress, well-developed, well-nourished Head exam: PRESENT: atraumatic, normocephalic Eye exam: PRESENT: EOMI, PERRLA. ABSENT: nystagmus, periorbital swelling, scleral icterus Mouth exam: PRESENT: moist Throat exam: ABSENT: tonsillar exudate, tonsillogmegaly Neck exam: ABSENT: meningismus, tenderness, thyromegaly Respiratory exam: PRESENT: symmetrical, unlabored. ABSENT: tachypnea, wheezes Cardiovascular exam: PRESENT: RRR, +S1, +S2 GI/Abdominal exam: PRESENT: soft. ABSENT: rebound, rigid, tenderness Extremities exam: ABSENT: joint swelling Neurological exam: PRESENT: oriented to time, oriented to situation, CN II-XII grossly intact Focused psych exam: ABSENT: restlessness Skin exam: PRESENT: normal color. ABSENT: mottled, pallor, urticaria, vesicles Results Laboratory Results: 09/01/17 04:39 09/01/17 04:39 09/01/17 09/01/17 04:39 04:39 WBC 16.0 H RBC 2.70 L Hgb 8.3 L Hct 24.6 L MCV 91 MCH 30.8 MCHC 33.7 RDW 13.8 Plt Count 394 Sodium 139.5 Potassium 3.5 L Chloride 110 H Carbon Dioxide 19 L Anion Gap 11 BUN 13 Creatinine 0.70 Est GFR ( Amer) > 60 Est GFR (Non-Af Amer) > 60 Glucose 87 Calcium 7.9 L Impressions: Chest X-Ray 08/25/17 20:36 IMPRESSION: NO SIGNIFICANT RADIOGRAPHIC FINDING IN THE CHEST. Abdomen/Pelvis CT 08/26/17 03:16 IMPRESSION: 1. No acute inflammatory or obstructive abnormality identified. 2. Bilateral nonobstructing renal calculi. 3. Diverticulosis without evidence of acute diverticulitis. 4. Hepatic steatosis. This exam was performed according to our departmental dose-optimization program, which includes automated exposure control, adjustment of the mA and/or kV according to patient size and/or use of iterative reconstruction technique. Assessment & Plan - Diagnosis (1) GI bleed due to NSAIDs Is this a current diagnosis for this admission?: Yes Plan: GI bleeding due to NSAID's, duodenal ulcer not actively bleeding could be due to H.Pylori discharge with follow up EGD in 4-6 weeks will see as outpatient - Time Time Spent with patient: 15-24 minutes
[2017-09-01 12:10] VITALS: BP 146/57
== END 2017-09-01 13:12 | disposition short-term general hospital (02) | DRG 871 ==
LOC: ER 19:18 → EH 08-26 04:48 → 3N 08-26 17:09
PROVIDERS: ADMIT Family Medicine; ATTEND Family Medicine
PROC: 30233N1 Transfusion of Nonautologous Red Blood Cells into Peripheral Vein, Percutaneous Approach (ICD-10-PCS; 2017-08-26)
PROC: 0DD68ZX Extraction of Stomach, Via Natural or Artificial Opening Endoscopic, Diagnostic (ICD-10-PCS; principal; 2017-08-31 13:00)
DX: A41.51 Sepsis due to Escherichia coli [E. coli] (principal); N17.0 Acute kidney failure with tubular necrosis; N12 Tubulo-interstitial nephritis, not specified as acute or chronic; D62 Acute posthemorrhagic anemia; I10 Essential (primary) hypertension; E87.6 Hypokalemia; D64.9 Anemia, unspecified; K26.9 Duodenal ulcer, unspecified as acute or chronic, without hemorrhage or perforation; K44.9 Diaphragmatic hernia without obstruction or gangrene; K29.70 Gastritis, unspecified, without bleeding; R19.5 Other fecal abnormalities; F41.8 Other specified anxiety disorders; B96.20 Unspecified Escherichia coli [E. coli] as the cause of diseases classified elsewhere; Z60.2 Problems related to living alone; T39.395A Adverse effect of other nonsteroidal anti-inflammatory drugs [NSAID], initial encounter; Y92.009 Unspecified place in unspecified non-institutional (private) residence as the place of occurrence of the external cause
CPT/HCPCS: 36415; 36430; 43239; 71046; 74176; 80048; 80053; 81001; 82272; 83690; 83735; 85025; 85027; 86850; 86900; 86901; 86920; 87040; 87077; 87086; 87186; 87804; 88305; 88342; 94640; 96365; 96372; 96375; 99285; G8978-GP; G8979-GP; J0171; J0696; J2250; J2270; J2310; J2405; J3010; J3480; J3490; J7030; J7040; J7050; P9016; S0164

== ENCOUNTER 2017-10-11 08:40 | Day surgery (SDC) | payer MEDICARE ==
[~2017-10-11 08:40] MED LIST: DIPHENHYDRAMINE HCL 50 MG/ML VIAL ONE; FENTANYL CITRATE INJ/PF 100 MCG/2 ML AMPUL ONE; FLUMAZENIL INJ 0.5 MG/5 ML VIAL ONE; NALOXONE HCL INJ/PF 0.4 MG/1 ML SDV ONE; ONDANSETRON HCL INJ/PF 4 MG/2 ML SDV ONE
[2017-10-11] MEDS ORDERED: GLUCAGON,HUMAN RECOMB 1 MG INJ ONE (08:41)
[2017-10-11] MEDS ORDERED: EPINEPHRINE INJ 1 MG/10 ML DISP.SYRIN ONE (08:41)
[2017-10-11] MEDS: MIDAZOLAM 2 MG/2 ML INJ ONE ×2 (09:07→09:09)
--- NOTE | 2017-10-11 09:46 | Operative Report ---
Operative Report DATE OF SURGERY: 10/11/17 Operative Report: The risks benefits and alternatives of the procedure explained to the patient in detail and informed consent is obtained.A GIF Olympus video scope was inserted into the patient's mouth and hypopharynx, the esophagus is identified intubated and insufflated ,the scope was then advanced through the esophagus stomach and duodenum, retroflexion maneuver is done, the esophagus stomach and first and second portions of the duodenum examined PREOPERATIVE DIAGNOSIS: Follow-up duodenal ulcer POSTOPERATIVE DIAGNOSIS: Healing duodenal ulcer, duodenitis, gastritis OPERATION: EGD with biopsy SURGEON: IRIS DUNCAN ANESTHESIA: Moderate Sedation - 3 mg of Versed. Conscious sedation monitoring time 30 minutes. TISSUE REMOVED OR ALTERED: Gastritis status post biopsy rule out Helicobacter pylori COMPLICATIONS: None. ESTIMATED BLOOD LOSS: None. INTRAOPERATIVE FINDINGS: As noted above. PROCEDURE: Patient tolerated procedure well. No immediate postprocedure complications are noted. Patient discharged in good condition. Discharge date 10/11/2017. Discharge diet: Regular. Discharge activity: Regular. 2-3 week follow-up to discuss findings. Patient is instructed call the office or proceed to the emergency room should there be any further problems or questions. We will wait on pathology.
[2017-10-11 10:10] VITALS: BP 144/49
== END 2017-10-11 10:20 | disposition home or self-care (01) ==
LOC: END 08:40
PROVIDERS: ATTEND Internal Medicine Gastroenterology
PROC: 0DB68ZX Excision of Stomach, Via Natural or Artificial Opening Endoscopic, Diagnostic (ICD-10-PCS; principal; 2017-10-11 09:00)
DX: K29.80 Duodenitis without bleeding (principal); K29.70 Gastritis, unspecified, without bleeding; Z09 Encounter for follow-up examination after completed treatment for conditions other than malignant neoplasm; Z87.19 Personal history of other diseases of the digestive system; I10 Essential (primary) hypertension; E78.00 Pure hypercholesterolemia, unspecified
CPT/HCPCS: 43239; 88342 ×2; 88305 ×2; J2250; J0171; J3010; J1200; J1610; J2310; J2405; J3490